=== PATIENT | female | born 1995 | race Caucasian/White ===

== ENCOUNTER 2018-08-22 13:05 | Observation (INO) ==
[2018-08-22] MEDS ORDERED: Acetaminophen 325 MG Tablet PO PRN (20:00)
[2018-08-22] MEDS: Sod Chloride 0.9% Inj 1,000 ML IV.CONT SCH (22:27)
[2018-08-22 22:28] VITALS: O2SAT 99
[2018-08-22] MEDS ORDERED: Ibuprofen 600 MG Tablet PO ONE (22:32)
[2018-08-22] MEDS: Famotidine PF Inj 20 MG/2 ML Vial IV.PUSH SCH (23:31)
[2018-08-23 06:49] LABS: Chloride 108 meq/L (98-107); Potassium 3.6 meq/L (3.5-5.1); Sodium 139 meq/L (136-145)
[2018-08-23 06:52] LABS: Baso % (Auto) 1.1 % (0.0-2.0); Eos # (Auto) 0.2 th/mm3 (0.0-0.4); Eos % (Auto) 6.1 % (0.0-4.0); Hematocrit 36.3 % (35.0-46.0); Hemoglobin 12.4 gm/dL (11.6-15.3); Lymph # (Auto) 1.6 th/mm3 (1.0-4.8); Lymph % (Auto) 42.3 % (9.0-44.0); Mean Corpuscular HGB Conc 34.1 % (32.0-36.0); Mean Corpuscular Hemoglobin 30.9 pg (27.0-34.0); Mean Corpuscular Volume 90.6 fL (80.0-100.0); Mean Platelet Volume 11.1 fL (7.0-11.0); Mono # (Auto) 0.4 th/mm3 (0.0-0.9); Mono % (Auto) 9.4 % (0.0-8.0); Neut # (Auto) 1.5 th/mm3 (1.8-7.7); Neut % (Auto) 41.1 % (16.0-70.0); Platelet Count 163 th/mm3 (150-450); Red Blood Count 4.01 mil/mm3 (4.00-5.30); Red Cell Distribution Width 12.6 % (11.6-17.2); White Blood Count 3.7 th/mm3 (4.0-11.0)
[2018-08-23 06:58] LABS: Albumin 3.4 g/dL (3.4-5.0); Anion Gap 6 meq/L (5-15); Blood Urea Nitrogen 6 mg/dL (7-18); Calcium 7.7 mg/dL (8.5-10.1); Carbon Dioxide 24.9 meq/L (21.0-32.0); Glucose,Random 79 mg/dL (74-106)
[2018-08-23 07:01] LABS: Alanine Aminotransferase 13 U/L (10-53); Aspartate Aminotransferase 15 U/L (15-37); Glomerular Filtration Rate Greater Than 89 mL/min (>89)
[2018-08-23 07:03] LABS: Total Protein 6.1 g/dL (6.4-8.2)
[2018-08-23 07:04] LABS: Alkaline Phosphatase 29 U/L (45-117)
[2018-08-23] MEDS: Sod Chloride 0.9% Inj 1,000 ML IV.CONT SCH (08:10)
[2018-08-23] MEDS: Famotidine PF Inj 20 MG/2 ML Vial IV.PUSH SCH (08:11)
--- NOTE | 2018-08-23 08:55 | MB ---
cc: Paris Wells MD DATE: 08/22/2018 CARDIOLOGY CONSULTATION REASON FOR CONSULTATION: Syncope and bradycardia. HISTORY OF PRESENT ILLNESS: Ms. Lamas is a 23-year-old female who presented to the emergency room with 4 days of nausea, vomiting and chest pain. She reports that despite not being able to eat or drink for several days she went to work. She "fell out at work" and then decided she needed to come to the emergency room. She reports that she is feeling some better today, though still." crappy." OUTPATIENT MEDICATIONS: None. ALLERGIES: NO KNOWN DRUG ALLERGIES. PAST MEDICAL HISTORY: Negative. PAST SURGICAL HISTORY: Includes a . SOCIAL HISTORY: The patient has never smoked and does not drink. REVIEW OF SYSTEMS: Except as mentioned in the HPI, all 12 systems are negative. FAMILY HISTORY: Noncontributory. PHYSICAL EXAMINATION: VITAL SIGNS: 96.7, 46, 20 and blood pressure 112/60. GENERAL: She is a well-appearing female, who is in no apparent distress. NECK: Free from JVD. LUNGS: Bilaterally clear to auscultation. CARDIOVASCULAR: She has a normal S1 and S2. The rhythm is a bit bradycardic. No murmurs, rubs or gallops are appreciated. ABDOMEN: Soft. EXTREMITIES: Free from edema. IMAGING/DIAGNOSTIC DATA: 1. CTA of the chest is negative for PE. 2. Abdomen and pelvis CT is also negative for any acute process. 3. EKG shows sinus bradycardia. 4. Telemetry - shows sinus bradycardia into the 40s. IMPRESSION: 1. Syncope - the patient has not had any food or fluid for several days. She was quite orthostatic. She has been hydrated overnight and is doing better. The telemetry was reviewed and she was bradycardic in the 40s all night. There were no pauses. She did ambulate with me this morning and her heart rate did go into the 60s. To ensure that there is no true atrioventricular farida dysfunction in light of her chest pain, I would do an exercise treadmill stress test to verify that her heart rate is able to get up over 100-120 and that she would not need a pacemaker, though I believe this is really low likelihood. The most likely etiology to her syncope is dehydration and probably a vasovagal component from all of the nausea and vomiting. 2. Atypical chest pain - the patient does report some discomfort in the lower left chest, epigastric region. Again, most likely related to her nausea and vomiting. The odds of a light young lady at 23 with no cardiac risk factors of actually having coronary artery disease is near zero. Nonetheless, the treadmill would be useful with regard to the bradycardia and assuring that there is normal rate response in this. Addendum: ETT had good exercise capacity, HR response and was not ischemic --ok for d/c from CV perspective MD SNOW Hanna/yannick , 07:57 AM , 08:05 AM MTDD
--- NOTE | 2018-08-23 10:07 | US ---
EXAM DATE: 08/23/2018 10:00 AM EST AGE/SEX: 23 years / Female INDICATIONS: Abdominal pain, nausea and vomiting. CLINICAL DATA: This is the patient's initial encounter. Patient reports that signs and symptoms have been present for 4 - 6 days and indicates a pain score of 0/10. MEDICAL/SURGICAL HISTORY: . Abdominal pain, nausea and vomiting. section. COMPARISON: [facility], CT ABDOMEN & PELVIS W CONTRAST, 08/22/2018. . MEASUREMENTS: Liver:__ 17.6 cm. Common Bile Duct:___ 4mm. Right Kidney:___11.5 x 5.5 x 4.3 cm. Left Kidney:___11.5 x 4.7 x 5.0 cm. Spleen:___12.1 cm. FINDINGS: Liver: Normal echogenicity without focal lesion or ductal dilatation. Portal Vein: Hepatopedal flow seen in portal vein. Common Duct: No intraluminal mass or stone visualized. Gallbladder: Demonstrates no wall thickening or pericholecystic fluid. No stones visualized. Pancreas: The visualized portions are within normal limits Right Kidney: Normal echogenicity and cortical thickness. No mass or hydronephrosis. Left Kidney: Normal echogenicity and cortical thickness. No mass or hydronephrosis. Ascites: None Pleural Effusion: None Spleen: No focal lesion. Aorta: Non aneurysmal. IVC: Within normal limits Other: None. CONCLUSION: 1. The liver is mildly prominent in size with no focal lesion or ascites. 2. The gallbladder is unremarkable in appearance with no evidence of cholelithiasis. Electronically signed by: Cornelio Jacobs MD Board Certified Radiologist 08/23/2018 10:06 AM EST
[2018-08-23] MEDS ORDERED: Morphine Inj 4 MG/ML Vial IV.PUSH PRN (10:25)
[2018-08-23] MEDS: Morphine Inj 4 MG/ML Vial IV.PUSH PRN ×2 (10:43→15:15)
--- NOTE | 2018-08-23 11:42 | P.HPIM ---
History of Present Illness Primary Care Physician: No Primary Care Physician Chief Complaint: Syncopal episode History of Present Illness: 23-year-old female with no chronic medical illnesses who presented to hospital for evaluation of syncopal episode. Patient states that over the last month she has been experiencing multiple symptoms and syncopal episodes. Patient states that proxy 1 month ago she had an episode of syncope and she had evaluation done and found to have bradycardia. Patient states that since then she has just not been feeling right. Been experiencing abdominal pain, left-sided chest pain, lightheadedness , dizziness. She indicates that there is been times that where she tries to eat and she will have emesis directly after eating. Patient indicates her last couple days she has been having difficulty with eating and being able to not vomit. 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 She states that her mother caught her and lowered down to the ground without any head injury. The patient brought to the hospital for evaluation. Patient was found to have bradycardia with heart rate in the 40s. Essentially other workup was unremarkable. Orthostatic blood pressures were normal. It was recommended by ER physician the patient be admitted for symptomatic bradycardia with cardiology consult. Upon evaluating patient stating that she still having some upper abdominal pain. When she points to her chest pain is usually in the left lower rib cage and upper abdomen. Review of Systems Review of Systems: all other systems reviewed are negative Cardiovascular: Reports chest pain Gastrointestinal: Reports abdominal pain, Reports nausea and Reports vomiting Neurologic: Reports syncope PMFSH Medical History Medical History Patient denies medical problems (Acute) Surgical History Surgical History Hx of section (Acute) Family History Family History Other No pertinent family history Social History Social History Substance History: No History of Abuse Second Hand Smoke Exposure: No Smoking Status: Never smoker How Often Do You Have a Drink Containing Alcohol: Never Recent Travel in [facility] within the Last 8 Weeks: No Recent Out of Country Travel within the Last 8 Weeks: No Immunization History Hx Influenza Vaccine This Season: Yes Medications and Allergies Allergies Allergy/AdvReac Type Severity Reaction Status Date / Time No Known Allergies Allergy Uncoded 08/03/12 22:44 Home Medications Medication Instructions Recorded Confirmed Type No Known Home Medications 08/22/18 08/22/18 History Active Medications: Active Medications Acetaminophen (Tylenol) 650 mg PO Q4H PRN PRN Reason: Temp > 100.4 Famotidine (Pepcid Pf Inj) 20 mg 0.25 mg/kg (20 mg) IV.PUSH Q12HR [facility] Last Admin: 08/23/18 08:11 Dose: 20 mg Sodium Chloride (Ns Inj) 1,000 mls @ 100 mls/hr IV.CONT .Q10H [facility] Last Admin: 08/23/18 08:10 Dose: 100 mls/hr Morphine Sulfate (Morphine Inj) 4 mg IV.PUSH Q4H PRN PRN Reason: Pain 7 to 10 Last Admin: 08/23/18 10:43 Dose: 4 mg Morphine Sulfate (Morphine Inj) 2 mg IV.PUSH Q4H PRN PRN Reason: Pain 3 to 6 Ondansetron HCl (Zofran Inj) 4 mg IV.PUSH Q6H PRN PRN Reason: NAUSEA OR VOMITING Sodium Chloride (Ns Flush) 2 ml IV.FLUSH BID [facility] Last Admin: 08/23/18 10:45 Dose: Not Given Sodium Chloride (Ns Flush) 2 ml IV.FLUSH PRN PRN PRN Reason: FLUSH AFTER USING IV ACCESS Physical Exam Vital signs: Vital Signs 08/22/18 20:00 08/22/18 21:53 08/23/18 00:00 Temperature 96.1 F L 96.7 F L Pulse Rate 47 L 54 L 46 L Respiratory Rate 20 20 Blood Pressure 138/63 112/60 Pulse Oximetry 99 99 08/23/18 00:07 08/23/18 04:09 08/23/18 08:00 Temperature 97.7 F Pulse Rate 45 L 42 L 44 L Respiratory Rate 18 Blood Pressure 111/74 Pulse Oximetry 99 Intake & Output 08/22/18 08/23/18 08/23/18 18:59 06:59 18:59 Intake Total 1000 / 1000 Balance 1000 / 1000 Weight 87.8 kg Intake: IV 1000 / 1000 NS Inj 1,000 ML @ 100 mls/hr IV 1000 / 1000 .CONT .Q10H [facility] Rx#:[id number] Other: # Voids 3 Weight On Admission 82.6 kg Narrative: GENERAL: Well-developed, well-nourished, in no acute distress. alert and orientated HEENT: Head is normocephalic without any lesions or masses noted. Facial features are symmetric. Eyes: Pupils equal round reactive to light. Extraocular muscles are intact. Conjunctivae were clear. Oropharyngeal: Pharynx without any erythema edema. Tongue is midline without deviation. Buccal mucosa is moist without any masses or lesions NECK: Supple without any masses. Trachea midline no deviation. No JVD, no bruits are appreciated CARDIAC: Regular rhythm, regular rate. S1/S2 are heard. No murmurs gallops or rubs. Reproducible pain on palpation of the left rib cage LUNGS: Clear to auscultation bilaterally. No wheeze, rhonchi or rales. No use of accessory muscles on inspiration or expiration. ABDOMEN: Soft, palpable tenderness noted in the left upper quadrant and right lower quadrant.. Nondistended. Bowel sounds heard in all 4 quadrants. No organomegaly or masses. Negative rebound, negative guarding EXTREMITIES: No edema, pulses are equal bilaterally. No cyanosis or clubbing NEUROLOGY: Mood and affect appear appropriate. Cranial nerves II through XII grossly intact. Muscle strength 5/5 in upper and lower extremities bilaterally. Deep tendon reflexes are 2+ in upper and lower extremities bilaterally. Results Labs CBC & Chem 7: 08/23/18 05:30 08/23/18 05:30 Imaging Impressions Abdomen Ultrasound 08/23/18 00:00 CONCLUSION: 1. The liver is mildly prominent in size with no focal lesion or ascites. 2. The gallbladder is unremarkable in appearance with no evidence of cholelithiasis. Caprini VTE Risk Assessment Caprini VTE Risk Assessment: No/Low Risk (score <= 1) Caprini Risk Assessment Model: Point Value = 1 Point Value = 2 Point Value = 3 Point Value = 5 Age 41-60 Minor surgery BMI > 25 kg/m2 Swollen legs Varicose veins or History of unexplained or recurrent spontaneous Oral contraceptives or hormone replacement Sepsis (< 1 month) Serious lung disease, including pneumonia (< 1 month) Abnormal pulmonary function Acute myocardial infarction Congestive heart failure (< 1 month) History of inflammatory bowel disease Medical patient at bed rest Age 61-74 Arthroscopic surgery Major open surgery (> 45 min) Laparoscopic surgery (> 45 min) Malignancy Confined to bed (> 72 hours) Immobilizing plaster cast Central venous access Age >= 75 History of VTE Family history of VTE Factor V Leiden Prothrombin [id number] Lupus anticoagulant Anticardiolipin antibodies Elevated serum homocysteine Heparin-induced thrombocytopenia Other congenital or acquired thrombophilia Stroke (< 1 month) Elective arthroplasty Hip, pelvis, or leg fracture Acute spinal cord injury (< 1 month) Prophylaxis Regimen: Total Risk Factor Score Risk Level Prophylaxis Regimen 0-1 Low Early ambulation 2 Moderate Order ONE of the following: *Sequential Compression Device (SCD) *Heparin 5000 units SQ BID 3-4 Higher Order ONE of the following medications: *Heparin 5000 units SQ TID *Enoxaparin/Lovenox 40 mg SQ daily (WT < 150 kg, CrCl > 30 mL/min) *Enoxaparin/Lovenox 30 mg SQ daily (WT < 150 kg, CrCl > 10-29 mL/min) *Enoxaparin/Lovenox 30 mg SQ BID (WT < 150 kg, CrCl > 30 mL/min) AND/OR *Sequential Compression Device (SCD) 5 or more Highest Order ONE of the following medications: *Heparin 5000 units SQ TID (Preferred with Epidurals) *Enoxaparin/Lovenox 40 mg SQ daily (WT < 150 kg, CrCl > 30 mL/min) *Enoxaparin/Lovenox 30 mg SQ daily (WT < 150 kg, CrCl > 10-29 mL/min) *Enoxaparin/Lovenox 30 mg SQ BID (WT < 150 kg, CrCl > 30 mL/min) AND *Sequential Compression Device (SCD) Assessment and Plan Plan Bradycardia with episode of syncope Orthostatic vitals were performed which were unremarkable Patient was given IV fluids EKG showing sinus bradycardia with occasional supraventricular premature atrial complexes CT of the brain was performed which did not indicate any acute abnormality Carotid ultrasound was performed which did not indicate any hemodynamically significant stenosis possible etiology of her bradycardia and syncope could be from dehydration, vasovagal from her persistent nausea and vomiting, if this case would recommend outpatient workup with family nurse Chest/abdominal pain Pulmonary angiogram was performed which was unremarkable for any etiology CT of the abdomen/pelvis and abdominal ultrasound were performed and did not indicate any acute etiology Cardiology evaluated the patient and recommending exercise stress test in order to evaluate for heart rate as well as underlying ischemia Exercise stress test was performed which did not show any signs of ischemia. No arrhythmias. Discussed with cardiology who indicated patient is clinically stable for discharge Patient does openly admit to use of marijuana. Discussed with the patient that her abdominal pain and cyclic vomiting could be secondary to marijuana use considering the patient has associated symptoms that warm showers improves DVT prevention Compression devices Code Status: Full code Discussed Condition With: Patient, nursing staff, Dr. Wells, Dr. Logan Discharge Planning: Discharge home in stable condition Activity: Ad vahid. Diet: Regular diet Medication per medication reconciliation Follow-up with primary medical doctor in 1 week H&P: Quality VTE Deep Vein Thrombosis/Pulmonary Embolism Present on Admission: No
[2018-08-23 12:06] VITALS: BP 131/67; PULSE 45; TEMP 96.3
--- NOTE | 2018-08-23 12:27 | CT ---
EXAM DATE: 08/23/2018 12:09 PM EST AGE/SEX: 23 years / Female INDICATIONS: Multiple syncopal episodes x 1 month. Cephalgia. CLINICAL DATA: This is the patient's initial encounter. Patient reports that signs and symptoms have been present for 1 month and indicates a pain score of 7/10. MEDICAL/SURGICAL HISTORY: None. section. RADIATION DOSE: 61.34 CTDI (mGy) COMPARISON: No prior exams available for comparison. TECHNIQUE: CT of the head without contrast. Using automated exposure control and adjustment of the mA and/or kV according to patient size, radiation dose was kept as low as reasonably achievable to ob tain optimal diagnostic quality images. DICOM format image data is available electronically for revi ew and comparison. FINDINGS: Cerebrum: The ventricles are normal for age. No evidence of midline shift, mass lesion, hemorrhage or acute infarction. No extraaxial fluid collections are seen. Posterior Fossa: The cerebellum and brainstem are intact. The 4th ventricle is midline. The cerebe llopontine angle is unremarkable. Extracranial: The visualized portion of the orbits is intact. Skull: The calvaria is intact. No evidence of skull fracture. CONCLUSION: 1. Negative noncontrast head CT. . Electronically signed by: Cornelio Jacobs MD Board Certified Radiologist 08/23/2018 12:26 PM EST
--- NOTE | 2018-08-23 15:04 | US ---
EXAM DATE: 08/23/2018 2:59 PM EST AGE/SEX: 23 years / Female INDICATIONS: Syncope; dizziness.. CLINICAL DATA: This is the patient's initial encounter. Patient reports that signs and symptoms have been present for 1 day and indicates a pain score of 5/10. MEDICAL/SURGICAL HISTORY: . Dizziness. section. COMPARISON: No prior exams available for comparison. VELOCITY PARAMETERS: ICA/CCA Ratio: Right 0.65 , Left 1.2 ICA: Right 95 cm/sec, Left 130 cm/sec CCA: Right 144 cm/sec, Left 108 cm/sec ECA: Right 109 cm/sec, Left 116 cm/sec Vertebral: Right 92 cm/sec antegrade, Left 89 cm/sec antegrade FINDINGS: Right Carotid: No significant plaque is visualized.The waveforms are within normal limits. Left Carotid: No significant plaque is visualized. The waveforms are within normal limits. Other: None. CONCLUSION: Unremarkable examination with no evidence of stenosis. Electronically signed by: Cornelio Jacobs MD Board Certified Radiologist 08/23/2018 3:02 PM EST
[2018-08-23 15:18] VITALS: RESP 20
--- NOTE | 2018-08-23 16:10 | TR ---
Date Performed: 08/23/2018 Time Performed: 14:07:05 DOCTOR: Paris Wells DRUG LIST: CLINICAL HISTORY: ANGINA REASON FOR TEST: REASON FOR ENDING: Completed Protocol OBSERVATION: Arrhythmia: None Chest Pain: None CONCLUSION: Patient tolerated BIPIN protocol with Total Exercise Time=9:51 Maximum SO=855 % Max HR Achieved=87.0% Maximum VS=683/80, Testing stopped secondary to goals acheived. During peak exercis e patient was without symptoms. upsloping ST segments. HR and BP appropriate response to exercise, Re covery period, quick recovery to baseline COMMENTS: No ischemia
== END 2018-08-23 17:25 | disposition home or self-care (01) ==
LOC: PHEDDLT 13:05 → PH3 13:05
PROVIDERS: ADMIT Hospitalist; ATTEND Hospitalist
DX: G43.A0 Cyclical vomiting, in migraine, not intractable; I49.1 Atrial premature depolarization; Z98.891 History of uterine scar from previous surgery; F12.90 Cannabis use, unspecified, uncomplicated; R07.89 Other chest pain; E86.0 Dehydration
CPT/HCPCS: 70450; 71275; 74177; 76700; 80053; 81001; 83690; 84484; 84703; 85025; 90761; 90772; 90774; 90775; 90782; 90784; 93005; 93017; 93880; 96361; 96372; 96374; 96375; 96376; 99285; C8952; C9113; G0378; J0500; J2270; J2405; J7030; Q9967